=== PATIENT | male | born 1970 | race Caucasian/White ===

== ENCOUNTER 2021-02-10 05:16 | Day surgery (SDC) | payer OTHER ==
[~2021-02-10 05:16] MED LIST: PRAX240 ML TP; TRILEPTAL300 MG PO; XYZAL5 MG PO; [UNRECOGNIZED DRUG - OTHER] TP
== END 2021-02-10 14:30 | disposition home or self-care (01) ==
LOC: CIR.AMB 05:16
PROVIDERS: ATTEND Orthopaedic Surgery Sports Medicine
DX: S43.431A Superior glenoid labrum lesion of right shoulder, initial encounter (principal); M25.311 Other instability, right shoulder; Z20.822 Contact with and (suspected) exposure to COVID-19